=== PATIENT | female | born 1965 | race Caucasian/White ===

== ENCOUNTER → 2024-01-06 | Outpatient (CLI) | payer MEDICAID, SELFPAY ==
--- NOTE | 2024-01-06 12:40 | XR_ITS ---
Examination: Bilateral hands 4 views Technique one AP lateral right hand left hand total 4 views Exam date and time: January 06, 2024 1332 hours INDICATIONS: Palpable lumps in both hands beginning 2 years ago. 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
--- NOTE | 2024-01-06 12:40 | XR_ITS ---
Examination: Knee bilateral, 6 views Technique: Knee AP, lateral, oblique each knee total 6 views Date and time of exam: January 06, 2024 1309 hours INDICATIONS: Bilateral knee pain beginning 2 years ago. FINDINGS: Moderate osteopenia Bilateral total knee arthroplasties. Satisfactory alignment The prosthetic tibial plateau left knee shows mild widening between the prosthesis and the tibial shaft 1.5 mm on the medial side IMPRESSION: No fracture Suspicious for loosening of the tibial prosthetic device left knee, consider 3 phase radioisotope bone scan follow-up
--- NOTE | 2024-01-06 12:40 | XR_ITS ---
Shoulder bilateral, 6 views Technique: Shoulder AP internal rotation, AP external rotation, Y view each shoulder total 6 views Exam date and time :January 06, 2024 1309 hours INDICATIONS: Bilateral shoulder pain beginning 2 years ago. FINDINGS: Prominent osteopenia Reverse left shoulder arthroplasty with satisfactory alignment Moderate narrowing right glenohumeral joint No right shoulder fracture or dislocation IMPRESSION: Reversal shoulder arthroplasty with satisfactory alignment Moderate narrowing right glenohumeral joint
== END | disposition home or self-care (01) ==
LOC: CDIM 12:17
PROVIDERS: Referring Provider Nurse Practitioner Family; Visit Provider Nurse Practitioner Family
DX: M25.561 Pain in right knee (principal); M25.562 Pain in left knee; M25.811 Other specified joint disorders, right shoulder; M25.512 Pain in left shoulder; Z96.612 Presence of left artificial shoulder joint; M19.042 Primary osteoarthritis, left hand; M19.041 Primary osteoarthritis, right hand; Z96.653 Presence of artificial knee joint, bilateral
CPT/HCPCS: 73030; 73120; 73562

== ENCOUNTER → 2024-01-13 | Outpatient (BNVA) | payer MEDICAID, SELFPAY | END | disposition home or self-care (01) | PROVIDERS: PCP Nurse Practitioner Family; Referring Provider Nurse Practitioner Family; Visit Provider Nurse Practitioner Family | DX: L02.11 Cutaneous abscess of neck (principal) | CPT/HCPCS: 96372; 99215; A4216; J0696; J3490 ==

== ENCOUNTER → 2024-01-14 | Outpatient (BNVA) | payer MEDICAID, SELFPAY | END | disposition home or self-care (01) | PROVIDERS: PCP Nurse Practitioner Family; Referring Provider Nurse Practitioner Family; Visit Provider Nurse Practitioner Family | DX: L02.11 Cutaneous abscess of neck (principal); M25.511 Pain in right shoulder; M25.512 Pain in left shoulder; M25.561 Pain in right knee; M25.562 Pain in left knee; G89.29 Other chronic pain; M79.642 Pain in left hand; M79.641 Pain in right hand | CPT/HCPCS: 99214 ==

== ENCOUNTER → 2024-01-16 | Outpatient (BNVA) | payer MEDICAID, SELFPAY | END | disposition home or self-care (01) | PROVIDERS: PCP Nurse Practitioner Primary Care; Referring Provider Nurse Practitioner Primary Care; Visit Provider Nurse Practitioner Primary Care | DX: Z71.2 Person consulting for explanation of examination or test findings (principal) | CPT/HCPCS: 99213 ==

== ENCOUNTER → 2024-01-23 | Outpatient (BNVA) | payer MEDICAID, SELFPAY | END | disposition home or self-care (01) | PROVIDERS: PCP Nurse Practitioner Family; Referring Provider Nurse Practitioner Family; Visit Provider Nurse Practitioner Family | DX: Z00.01 Encounter for general adult medical examination with abnormal findings (principal); M25.511 Pain in right shoulder; M25.512 Pain in left shoulder; G89.29 Other chronic pain; G47.00 Insomnia, unspecified; Z79.52 Long term (current) use of systemic steroids | CPT/HCPCS: 93005; 99215 ==

== ENCOUNTER → 2024-02-04 | Outpatient (CLI) | payer MEDICAID, SELFPAY ==
--- NOTE | 2024-02-04 09:00 | XR_ITS ---
Examination: Screening digital mammography, bilateral Computer aided detection 3-D breast Tomosynthesis, bilateral Date and time of exam: February 04, 2024 0858 hrs. Compared to mammograms dating to 11/06/2011 Indication: Screening, patient states bilateral breast pain months Technique: Nonmagnified MLO, CC views of the breasts to been obtained, reconstructed from 3-D Tomosynthesis images. R2 computer aided detection program utilized for evaluation of suspicious masses and/or abnormal calcifications. 3-D Tomosynthesis images obtained. Findings: The breasts are heterogeneously dense, which may obscure small masses Benign calcifications No interval suspicious masses Impression: BI-RADS category II: Benign Findings. Recommend 1 year follow-up mammogram.
== END | disposition home or self-care (01) ==
LOC: CDIM 08:45
PROVIDERS: PCP Nurse Practitioner Family; Referring Provider Nurse Practitioner Family; Visit Provider Nurse Practitioner Family
DX: Z12.31 Encounter for screening mammogram for malignant neoplasm of breast (principal); R92.323 Mammographic fibroglandular density, bilateral breasts; R92.1 Mammographic calcification found on diagnostic imaging of breast
CPT/HCPCS: 77063; 77067

== ENCOUNTER → 2024-02-11 | Outpatient (BNVA) | payer MEDICAID, SELFPAY | END | disposition home or self-care (01) | PROVIDERS: PCP Nurse Practitioner Family; Referring Provider Nurse Practitioner Family; Visit Provider Nurse Practitioner Family | DX: M17.12 Unilateral primary osteoarthritis, left knee (principal); Z12.31 Encounter for screening mammogram for malignant neoplasm of breast; Z71.2 Person consulting for explanation of examination or test findings | CPT/HCPCS: 99213 ==

== ENCOUNTER → 2024-03-17 | Outpatient (CLI) | payer MEDICAID, SELFPAY ==
--- NOTE | 2024-03-17 09:00 | XR_ITS ---
MRI shoulder, left, without contrast. Date and time: March 17, 2024 0938 hours INDICATIONS: Shoulder pain post lifting injury one year ago Technique: Multiple axial, sagittal and coronal sections of the shoulder have been obtained. Siemens high-resolution 1.5 Jocy MRI scanner is utilized. Axial fat-suppressed sections, TR 2350, TE 18 T2-weighted coronal fat-saturated images, TR 3500, TE 7100 T1-weighted coronal images, TR 500, TE 15 T2-weighted sagittal fat-saturated images, TR 3500, TE 57 T1-weighted sagittal sections, TR 504, TE 13. Findings: The patient's shoulder arthroplasty generates severe magnetic susceptibility artifacts, no shoulder detail IMPRESSION: Consider standard contrast fluoroscopically guided shoulder arthrogram to assess for rotator cuff tear
--- NOTE | 2024-03-17 09:30 | XR_ITS ---
MRI shoulder, right, without contrast. Date and time: 2024 0938 hours INDICATIONS: Right shoulder pain beginning 6 months ago, difficulty raising arm Technique: Multiple axial, sagittal and coronal sections of the shoulder have been obtained. Siemens high-resolution 1.5 Jocy MRI scanner is utilized. Axial fat-suppressed sections, TR 2350, TE 18 T2-weighted coronal fat-saturated images, TR 3500, TE 7100 T1-weighted coronal images, TR 500, TE 15 T2-weighted sagittal fat-saturated images, TR 3500, TE 57 T1-weighted sagittal sections, TR 504, TE 13. Findings: Large, greater than 4 cm full-thickness rotator cuff tear Subscapularis insertion is intact. Subscapularis bursa is not seen. Long head of the biceps is in the bicipital groove. No definite tear of the biceps superior labral anchor is seen. Retraction of the musculotendinous junction of the rotator cuff is prominent. Distance between the acromium and humeral head is 1 mm Atrophy of the supraspinatus muscle is severe. Atrophy of the infraspinatus muscle is severe. Sagittal sections demonstrate a horizontal acromion. Acromioclavicular joint demonstrates moderate osteoarthritis. Osacromiale is not identified. Fraying and irregularity anterior superior labral margins. Bony glenoid fossa on the sagittal sections does not demonstrate osseous defect. Occult fracture or area of avascular necrosis is not seen. Acromioclavicular joint separation is not visible. Defect in the posterolateral margin of the humeral head is not seen Impression: Large full-thickness rotator cuff tear Fraying and irregularity anterior superior labral margins
== END | disposition home or self-care (01) ==
PROVIDERS: PCP Nurse Practitioner Family; Referring Provider Nurse Practitioner Family; Visit Provider Nurse Practitioner Family
DX: S46.011A Strain of muscle(s) and tendon(s) of the rotator cuff of right shoulder, initial encounter (principal); S49.92XA Unspecified injury of left shoulder and upper arm, initial encounter; X58.XXXA Exposure to other specified factors, initial encounter; M25.811 Other specified joint disorders, right shoulder; G89.29 Other chronic pain
CPT/HCPCS: 73221; 73721

== ENCOUNTER → 2024-03-26 | Outpatient (BNVA) | payer MEDICAID, SELFPAY | END | disposition home or self-care (01) | PROVIDERS: PCP Nurse Practitioner Family; Referring Provider Nurse Practitioner Family; Visit Provider Nurse Practitioner Family | DX: Z71.2 Person consulting for explanation of examination or test findings (principal); M75.101 Unspecified rotator cuff tear or rupture of right shoulder, not specified as traumatic; M25.512 Pain in left shoulder; G89.29 Other chronic pain | CPT/HCPCS: 99214 ==

== ENCOUNTER 2024-04-02 13:16 | Outpatient (AMB) | payer MEDICAID, SELFPAY ==
--- NOTE | 2024-04-02 13:33 | ORTHONT_ITS ---
Vital signs 04/02/24 13:34 Height 1.55 m Height Method Stated Weight 62.227 kg Weight Measurement Method Standing Scale BMI 25.9 BP 115/75 Blood Pressure Source Automatic Cuff Blood Pressure Location Left Upper Arm Position Sitting Respiration 18 Pulse 78 Pulse Source Monitor Temp 97.6 F Temp Source Temporal Artery Scan Pulse Oximetry (%) 96 Oxygen Delivery Method Room Air Med/Allergies Allergies & Medications Allergies No Known Allergies Allergy (Verified 04/02/24 13:35) Medication Reconciliation amlodipine 10 mg tablet 10 mg PO QDAY #90 tabs 01/23/24 [Rx Confirmed 04/02/24] hydrochlorothiazide 25 mg tablet 25 mg PO QDAY #90 tabs 01/23/24 [Rx Confirmed 04/02/24] meloxicam 15 mg tablet 15 mg PO QDAY #90 tabs 02/11/24 [Rx Confirmed 04/02/24] diclofenac sodium 1 % topical gel (Voltaren Arthritis Pain) 2 g topical QID PRN mild pain (scale score 1-4) #100 grams 03/27/24 [Rx Confirmed 04/02/24] Exam Exam Patient is in no acute distress and is cooperative with the examination today. Patient has a normal mood and affect. Breathing is nonlabored. In no respiratory distress. Bilateral extremities were evaluated and demonstrates sensation intact to light touch. Palpable pedal pulses are present. No significant edema is present. Left knee incisions clean dry and intact. Range of motion 0 to 105 degrees. Knee feels stable varus valgus stress was up translation. She is tender to palpation over the tibia Assessment and Plan Problem List (1) Mechanical loosening of internal left knee prosthetic joint: Status: Acute Plan: Patient is a 58-year-old female with left knee pain and a recent total knee replacement. I discussed with her that there is a radiolucent line circumferentially around her tibial component. It is a [employer] attune. I discussed with her that if she is having pain and a lot of start up pain. I do think that he is likely developing symptoms of mechanical loosening based on both radiographic and clinical exam. I thus discussed revision knee replacement. She reports that she wants to just continue watching it for now. I discussed with her that we can if she wants. I discussed with her that this could cause further worsening and bony erosion. We will order an ESR and CRP to rule out infection first Office Procedures GNS Level of Care Nursing/Assessment Patient Status: Initial/New Patient Nursing Assessment/Reassesment: Medication Reconciliation, Update PMH in EMR and Vital Signs Coordination of Care: Complex Care and Chronic Disease 1-5, Education Complex Pt/Fam, Consent,records obtained, informed consent, 1 Ins Authorization, Lab and Imaging orders, Results/Orders obtained and Staff clarify orders Special Needs: Language special needs New Patient Charge New Patient Point Assignment: 1124 New Patient Point Charge: TAX TECHNICIAN Level 4 ([id number]) MA Intake Visit Data Collection New Patient or Established: New Patient (never been to [facility]) Reason for Visit:: BILATERAL KNEE PAIN Seen by Clinical Staff ONLY (RN/MA): No Verbal consent obtained for Telemed visit?: Yes Three Dimensional Map Modeler Required: Yes PCP or OBGYN visit in last 3 months: Yes Hx Now: No Do You Feel Safe at Home: Yes Authorities Contacted: N/A Questionairres Past Medical History Past Medical History Have you ever been diagnosed with any of the following: Neurological Problems Meningitis: No Seizures: No Epilepsy: No Cardiology Problems Hypercholesterolemia: Yes (TAKES PO MEDICATION) Congestive Heart Failure: No Edema: No Cellulitis: No Hypertension: Yes (TAKES MED) Varicose Veins: No Respiratory Problems Chronic Obstructive Pulmonary Disease (COPD): No Pneumonia: No Tuberculosis: No Sleep Apnea: No Stomache/Intestinal Problems Hepatitis: No Gall Bladder Disease: Yes (LAP) Hiatal Hernia: No Hemorrhoids: No Gastroesophageal Reflux Disease: No Genital/Urinary Problems Renal Disease: No Kidney Stones: No Reproductive Problems Previous Pregnancies: Yes (X3) Musculoskeletal Problems Arthritis: Yes Fractures: No Endocrine Problems Diabetes Mellitus Type 1: No Diabetes Mellitus Type 2: No (GESTATIONAL NO MED) Blood Problems Anemia: Yes (IRON INFUSION LAST INFUSION 01/17/2020-06/01) Other Problems Hospitalization: No Shingles: No Falls: No Blood Transfusions: No Blood Transfusion Reaction: No Anesthesia Reactions: No Chemotherapy: No Radiation Therapy: No MRSA: No Chicken Pox: No Measles: No Mumps: No Cancer: No Surgical History Pacemaker: No Subjective Visit Visit for: new patient and knee (BILATERAL) Immunization / Flu Flu Vaccine in the Last 12 Months: Yes Flu Vaccine Exclusion Criteria: Already Received History of Present Illness Chief complaint: left knee Patient is a 58 yo female with a left total knee replacement Done 3 years ago. She reports in the last 6 months she is developed a knee pain. The pain is over the tibia. She reports the first initial steps hurt more than the pain stabilizes. The surgery was done in [place] by Dr. Springer Pain Pain level (0-10): 6 Pain duration: ON AND OFF Pain location: outside (lateral) Associated signs & symptoms: none Ambulatory data Ambulatory device: none Treatments Improvement with previous injections: No Improvement with PT: No Improvement with NSAIDS: no Review of Systems Review of Systems: All systems negative unless otherwise noted in HPI.
[2024-04-02 13:34] VITALS: BP 115/75; PULSE 78; RESP 18; TEMP 36.4; O2SAT 96; BMI 25.9
== END 2024-04-02 13:46 | disposition home or self-care (01) ==
LOC: HODSRG 13:16
PROVIDERS: PCP Nurse Practitioner Family; Referring Provider Nurse Practitioner Family; Supervising Provider Orthopaedic Surgery Adult Reconstructive Orthopaedic Surgery; Visit Provider Orthopaedic Surgery Adult Reconstructive Orthopaedic Surgery
DX: T84.033A Mechanical loosening of internal left knee prosthetic joint, initial encounter (principal); Y84.9 Medical procedure, unspecified as the cause of abnormal reaction of the patient, or of later complication, without mention of misadventure at the time of the procedure; M25.562 Pain in left knee; I10 Essential (primary) hypertension; E78.00 Pure hypercholesterolemia, unspecified
CPT/HCPCS: 99204; G0463

== ENCOUNTER → 2024-04-10 | Outpatient (BNVA) | payer MEDICAID, SELFPAY | END | disposition home or self-care (01) | PROVIDERS: PCP Nurse Practitioner Family; Referring Provider Nurse Practitioner Family; Visit Provider Nurse Practitioner Family | DX: M25.572 Pain in left ankle and joints of left foot (principal) | CPT/HCPCS: 99215 ==

== ENCOUNTER → 2024-04-14 | Outpatient (CLI) | payer MEDICAID, SELFPAY ==
--- NOTE | 2024-04-14 16:40 | XR_ITS ---
Examination: Foot, left, 3 views Technique: AP, oblique, lateral views foot, 3 views Date and time of exam: March 17, 2024 1655 hours INDICATIONS: Left foot swelling and pain this week FINDINGS: Prominent osteopenia Moderate narrowing first metatarsophalangeal joint No fracture No cortical bone destruction No opaque foreign body Minute plantar posterior bony calcaneal spurs IMPRESSION: No fracture No cortical bone destruction Moderate osteoarthritis first metatarsophalangeal joint
--- NOTE | 2024-04-14 16:40 | XR_ITS ---
Examination: Left ankle 2 views Technique one AP lateral left ankle 2 views Exam date and time: April 14 2024 1656 hours INDICATIONS: Left ankle swelling and pain this week FINDINGS: Moderate osteopenia. No fracture or dislocation. 2 mm plantar posterior bony calcaneal spurs IMPRESSION: No fracture or dislocation No cortical bone destruction
== END | disposition home or self-care (01) ==
PROVIDERS: PCP Nurse Practitioner Family; Referring Provider Nurse Practitioner Family; Visit Provider Nurse Practitioner Family
DX: M77.32 Calcaneal spur, left foot (principal); M19.072 Primary osteoarthritis, left ankle and foot
CPT/HCPCS: 73600; 73630

== ENCOUNTER → 2024-04-20 | Outpatient (BNVA) | payer MEDICAID, SELFPAY | END | disposition home or self-care (01) | PROVIDERS: PCP Nurse Practitioner Family; Referring Provider Nurse Practitioner Family; Visit Provider Nurse Practitioner Family | DX: Z71.2 Person consulting for explanation of examination or test findings (principal); M25.572 Pain in left ankle and joints of left foot; G89.29 Other chronic pain; R52 Pain, unspecified | CPT/HCPCS: 99214 ==

== ENCOUNTER → 2024-04-30 | Outpatient (BNVA) | payer MEDICAID, SELFPAY | END | disposition home or self-care (01) | PROVIDERS: PCP Nurse Practitioner Family; Referring Provider Nurse Practitioner Family; Visit Provider Nurse Practitioner Family | DX: R52 Pain, unspecified (principal); R73.03 Prediabetes; I10 Essential (primary) hypertension; E78.5 Hyperlipidemia, unspecified | CPT/HCPCS: 99213 ==

== ENCOUNTER → 2024-05-22 | Outpatient (BNVA) | payer MEDICAID, SELFPAY | END | disposition home or self-care (01) | PROVIDERS: PCP Nurse Practitioner Family; Referring Provider Nurse Practitioner Family; Visit Provider Nurse Practitioner Family | DX: M25.50 Pain in unspecified joint (principal); E78.5 Hyperlipidemia, unspecified; I10 Essential (primary) hypertension; Z76.0 Encounter for issue of repeat prescription | CPT/HCPCS: 99212; G0463 ==

== ENCOUNTER → 2024-08-04 | Outpatient (BNVA) | payer MEDICAID, SELFPAY | END | disposition home or self-care (01) | PROVIDERS: PCP Nurse Practitioner Family; Referring Provider Nurse Practitioner Family; Visit Provider Nurse Practitioner Family | DX: R73.03 Prediabetes (principal); G89.29 Other chronic pain; M25.50 Pain in unspecified joint; Z76.0 Encounter for issue of repeat prescription | CPT/HCPCS: 83036; 99214 ==

== ENCOUNTER → 2024-10-02 | Outpatient (BNVA) | payer SELFPAY | END | disposition home or self-care (01) | PROVIDERS: PCP Nurse Practitioner Family; Referring Provider Nurse Practitioner Family; Visit Provider Nurse Practitioner Family | DX: Z76.0 Encounter for issue of repeat prescription (principal); G89.29 Other chronic pain; M25.50 Pain in unspecified joint; I10 Essential (primary) hypertension | CPT/HCPCS: 99212; G0463 ==